=== PATIENT | female | born 1940 | race Caucasian/White ===

== ENCOUNTER 2025-09-03 12:54 | Outpatient (OUT) | payer MEDICARE, BC, SELFPAY ==
--- NOTE | 2025-09-03 13:02 | CT_ITS ---
The [address] [address] Patient Name: LEANDRO TELLEZ MRN: [id number] date: 1940 Sex: F Assigned Patient Location: CT Current Patient Location: CT Accession/Order Number: [id number] Exam Date: 09/03/2025 13:10 Report Date: 09/03/2025 14:45 At the request of: NAINA ESPÑAA Procedure: CT head/brain wo con CT BRAIN WITHOUT CONTRAST: CLINICAL HISTORY: Patient's head leans to the right. COMPARISON: None TECHNIQUE: Contiguous axial unenhanced images were obtained through the brain. This CT exam was performed using one or more following dose reduction techniques: Automated exposure control, adjustment of the mA and/or kV according to patient size, or use of iterative reconstruction technique. FINDINGS: There is generalized atrophy. There is slight prominence of the lateral and third ventricles. The ventricles are midline in position. Moderate microvascular changes are noted. There are no additional areas of abnormal attenuation. There is no hemorrhage, mass effect or extra-axial collections. There is minimal paranasal sinus mucosal thickening. The mastoid air cells are clear. Vertebral artery and carotid siphon plaque are visualized. CT/CT head/brain wo con IMPRESSION: ATROPHY AND MODERATE CHRONIC MICROVASCULAR CHANGES. MILD VENTRICULOMEGALY. NO OTHER ACUTE INTRACRANIAL ABNORMALITY. Impression dictated by: Guera Jefferson M.D. 09/03/2025 2:45 PM Dictation Location: [place] [address] Electronically authenticated by: [id number] Y Date: 09/03/2025 14:45
--- NOTE | 2025-09-03 13:02 | CT_ITS ---
The [address] [address] Patient Name: LEANDRO TLELEZ MRN: [id number] date: 1940 Sex: F Assigned Patient Location: CT Current Patient Location: CT Accession/Order Number: [id number] Exam Date: 09/03/2025 13:10 Report Date: 09/03/2025 15:01 At the request of: NAINA ESPAÑA Procedure: CT chest wo con CT CHEST WITHOUT CONTRAST CLINICAL DATA: History of lung nodules and tobacco use. COMPARISON: None Spiral axial unenhanced images were obtained through the chest. Images were reviewed using both narrow and wide window settings. This CT exam was performed using one or more following dose reduction techniques: Automated exposure control, adjustment of the mA and/or kV according to patient size, or use of iterative reconstruction technique. The heart is borderline enlarged. A trace amount of pericardial fluid is seen. There is dense calcification at the mitral annulus. There is a prosthetic aortic valve. Minor coronary disease is noted. The ascending aorta is ectatic measuring almost 4 cm in size. There is plaque at the aortic arch, descending aorta and proximal great vessels. There is an aberrant right subclavian artery. There are pre and subcarinal lymph nodes. The precarinal lymph node has a fatty hilus. The thyroid lobes are heterogeneous and there are macrocalcifications on the right. There is dilatation of the esophagus above the cailin. There is apparent slight thickening of the wall the distal esophagus and tiny hiatal hernia. There are degenerative changes at the spine. Old rib fractures are visualized. There is a trace amount of layering pleural fluid on the right. Mild scarring and/or atelectasis is visualized. There is no additional consolidation or pneumothorax. Tiny subpleural nodules are seen at the left apex. A tiny 2 - 3 mm nodule is seen at the left upper lobe on axial image 33 and possibly a couple other punctate nodular densities within the left upper lobe on axial images 35 and 46. At the superior segment of the right lower lobe, there is a lobulated 2.6 cm cavitary nodule. The upper imaged abdomen show dependent tiny stones and/or sludge. CT/CT chest wo con IMPRESSION: CARDIOMEGALY AND AORTIC ECTASIA. SCARRING, ATELECTASIS AND TINY RIGHT PLEURAL EFFUSION. PULMONARY NODULARITY AND CAVITARY RIGHT LOWER LOBE LUNG NODULE. THERE ARE NO PRIORS TO ASSESS FOR INTERVAL CHANGE. ALTHOUGH INFECTION IS IN THE DIFFERENTIAL, NEOPLASM IS NOT EXCLUDED. FOLLOW-UP WILL BE NEEDED. PROXIMAL DILATED ESOPHAGUS AND APPARENT WALL THICKENING DISTALLY. CORRELATION AND COMPARISON TO PREVIOUS IMAGING IS SUGGESTED. CHOLELITHIASIS AND/OR SLUDGE. Impression dictated by: Guera Jefferson M.D. 09/03/2025 3:01 PM Dictation Location: [place] [address] Electronically authenticated by: [id number] Y Date: 09/03/2025 15:01
== END 2025-09-03 12:55 | disposition home or self-care (01) ==
LOC: CT 12:54
PROVIDERS: PCP Family Medicine; Visit Provider Nurse Practitioner
DX: R91.1 Solitary pulmonary nodule (principal); R58 Hemorrhage, not elsewhere classified; I51.7 Cardiomegaly; J90 Pleural effusion, not elsewhere classified; K80.20 Calculus of gallbladder without cholecystitis without obstruction; G93.89 Other specified disorders of brain
CPT/HCPCS: 70450; 71250